=== PATIENT | male | born 1985 | race Native Hawaiian/Other Pacific Islander ===

== ENCOUNTER 2017-03-14 17:15 | Outpatient (CLI) | payer OTHER | END 2017-03-14 17:22 | disposition short-term general hospital (02) | LOC: AMB 17:15 | DX: M25.561 Pain in right knee (principal); M25.512 Pain in left shoulder; M79.642 Pain in left hand; S61.422A Laceration with foreign body of left hand, initial encounter; V49.49XA Driver injured in collision with other motor vehicles in traffic accident, initial encounter; Y92.488 Other paved roadways as the place of occurrence of the external cause | CPT/HCPCS: A0425; A0429 ==

== ENCOUNTER 2017-03-14 17:28 | Emergency (ER) | payer OTHER ==
[~2017-03-14] VITALS: Ht 172.7 cm; Wt 113.4 kg
== END 2017-03-14 19:30 | disposition home or self-care (01) ==
LOC: ED 17:28
DX: S40.022A Contusion of left upper arm, initial encounter (principal); S60.212A Contusion of left wrist, initial encounter; S60.222A Contusion of left hand, initial encounter; S20.212A Contusion of left front wall of thorax, initial encounter; V53.5XXA Driver of pick-up truck or van injured in collision with car, pick-up truck or van in traffic accident, initial encounter
CPT/HCPCS: 96372; 99283; J1885